=== PATIENT | male | born 1930 | race Caucasian/White ===

== ENCOUNTER → 2017-01-16 | Outpatient (CLI) | payer MEDICARE ==
[~2017-01-16] MED LIST: ALDACTONE25 MG PO; ALLEGRA ALLERG180 MG PO; ALPRAZOLAM0.5 MG PO; BYSTOLIC10 MG PO; CENTRUM SILVER1 EAC1 PO; COLCRYS0.6 MG PO; DEMADEX20 MG PO; DESYREL 50 MG T50 MG PO; ELIQUIS2.5 MG PO; FISH OIL 1,0001 EACH PO; FLOMAX0.4 MG PO; GLUCOPHAGE500 MG PO; NASONEX SPRAY 117 GM; PRAVACHOL20 MG PO; VITAMIN C 500500 MG PO; VITEYE
== END ==
LOC: KOH-I 11:18
DX: M54.9 Dorsalgia, unspecified (principal); M43.16 Spondylolisthesis, lumbar region
CPT/HCPCS: 72110

== ENCOUNTER → 2017-01-20 | Outpatient (CLI) | payer MEDICARE | LOC: MRI 13:40 → KOH-I 14:00 | DX: M48.56XA Collapsed vertebra, not elsewhere classified, lumbar region, initial encounter for fracture (principal); M54.9 Dorsalgia, unspecified; M51.36 Other intervertebral disc degeneration, lumbar region; M47.816 Spondylosis without myelopathy or radiculopathy, lumbar region | CPT/HCPCS: 72148 ==

== ENCOUNTER → 2017-01-24 | Outpatient (CLI) | payer MEDICARE ==
[2017-01-24 11:20] LABS: RED BLOOD COUNT 4.12 M/UL (4.20-5.50); WHITE BLOOD COUNT 13.1 K/UL (4.5-11.0)
[2017-01-24 11:40] LABS: BUN/CREATININE RATIO 29 (0-10)
== END ==
LOC: OPSV2 10:00
PROVIDERS: Orthopaedic Surgery
DX: M48.56XA Collapsed vertebra, not elsewhere classified, lumbar region, initial encounter for fracture (principal); I10 Essential (primary) hypertension; E78.5 Hyperlipidemia, unspecified; I51.9 Heart disease, unspecified; I48.91 Unspecified atrial fibrillation; M19.90 Unspecified osteoarthritis, unspecified site; Z82.49 Family history of ischemic heart disease and other diseases of the circulatory system; Z79.84 Long term (current) use of oral hypoglycemic drugs; M81.0 Age-related osteoporosis without current pathological fracture; Z53.09 Procedure and treatment not carried out because of other contraindication
CPT/HCPCS: 36415; 71020; 80048; 85025; 93005

== ENCOUNTER → 2017-02-03 | Day surgery (SDC) | payer MEDICARE ==
[~2017-02-03] VITALS: Ht 172.7 cm; Wt 102.3 kg
[2017-02-03 06:49] LABS: HEMOGLOBIN 15.1 gm/dl (14.0-17.5); RED BLOOD COUNT 4.38 M/UL (4.20-5.50)
[2017-02-03 07:08] LABS: BUN/CREATININE RATIO 28 (0-10)
== END | disposition home or self-care (01) ==
LOC: OR 06:00
PROVIDERS: Orthopaedic Surgery
PROC: 0QU03JZ Supplement Lumbar Vertebra with Synthetic Substitute, Percutaneous Approach (ICD-10-PCS; 2017-02-03)
PROC: 0QS03ZZ Reposition Lumbar Vertebra, Percutaneous Approach (ICD-10-PCS; principal; 2017-02-03 07:45)
DX: M80.08XA Age-related osteoporosis with current pathological fracture, vertebra(e), initial encounter for fracture (principal); E78.5 Hyperlipidemia, unspecified; I11.0 Hypertensive heart disease with heart failure; I48.91 Unspecified atrial fibrillation; I25.10 Atherosclerotic heart disease of native coronary artery without angina pectoris; I25.2 Old myocardial infarction; I71.4 Abdominal aortic aneurysm, without rupture; M19.90 Unspecified osteoarthritis, unspecified site; Z85.828 Personal history of other malignant neoplasm of skin; Z98.49 Cataract extraction status, unspecified eye; Z79.01 Long term (current) use of anticoagulants; Z79.899 Other long term (current) drug therapy; Z87.01 Personal history of pneumonia (recurrent); Z87.442 Personal history of urinary calculi; X58.XXXA Exposure to other specified factors, initial encounter
CPT/HCPCS: 36415; 71010; 80048; 82962; 85025; 93005; J0690; J1200; J2250; J2405; J2710; J3010; J7030; J7120; Q9962

== ENCOUNTER → 2017-02-20 | Outpatient (CLI) | payer MEDICARE | LOC: KOH-I 11:33 | DX: M25.551 Pain in right hip (principal) | CPT/HCPCS: 72170; 73502 ==

== ENCOUNTER → 2017-03-05 | Outpatient (CLI) | payer MEDICARE | LOC: KOH-I 15:30 | DX: M81.0 Age-related osteoporosis without current pathological fracture (principal); M96.1 Postlaminectomy syndrome, not elsewhere classified; M48.56XA Collapsed vertebra, not elsewhere classified, lumbar region, initial encounter for fracture; M48.06 Spinal stenosis, lumbar region; M99.73 Connective tissue and disc stenosis of intervertebral foramina of lumbar region; M85.851 Other specified disorders of bone density and structure, right thigh | CPT/HCPCS: 72148; 77080 ==